=== PATIENT | male | born 1965 | race Caucasian/White ===

== ENCOUNTER → 2020-04-28 12:10 | Outpatient (CLI) | payer MEDICAID, SELFPAY ==
[2020-04-28 13:41] LABS: Alanine Aminotransferase 14 U/L (12-78); Aspartate Amino Transferase 17 U/L (17-59); Bilirubin,Unconjugated 0.6 mg/dL (0.0-1.1)
[2020-04-28 13:42] LABS: Albumin Level 3.7 g/dl (3.5-5.0); Alkaline Phosphatase 84 U/L (38-126); Bilirubin,Direct 0.1 mg/dl (0.0-0.4); Bilirubin,Indirect 0.6 mg/dL (0.0-0.9); Bilirubin,Total 0.7 mg/dl (0.2-1.3); Chol/HDL Ratio 4.3 (1-3.5); Cholesterol 115 mg/dl (140-200); HDL Cholesterol 27 mg/dl (40-60); Total Protein,Serum 6.1 g/dl (6.3-8.2); Triglycerides 194 mg/dl (30-150); VLDL Cholesterol 39 mg/dL (0-40)
[2020-04-28 13:53] LABS: Direct LDL Cholesterol 57.88 mg/dL (100-129)
== END ==
PROVIDERS: Visit Provider Nurse Practitioner Family
DX: I11.9 Hypertensive heart disease without heart failure (principal); I77.9 Disorder of arteries and arterioles, unspecified; F17.200 Nicotine dependence, unspecified, uncomplicated
CPT/HCPCS: 36415; 80061; 80076

== ENCOUNTER → 2021-06-21 09:21 | Outpatient (CLI) | payer MEDICAID, SELFPAY ==
[2021-06-21 10:55] LABS: Chloride 104 mmol/L (98-107)
[2021-06-21 10:56] LABS: Potassium 3.7 mmoL/L (3.5-5.1); Sodium 138 mmol/L (136-145)
[2021-06-21 10:58] LABS: Alanine Aminotransferase 17 U/L (12-78); Alkaline Phosphatase 78 U/L (38-126); Anion Gap 13.7 mEq/L (5-15); Aspartate Amino Transferase 25 U/L (17-59); Bilirubin,Indirect 0.8 mg/dL (0.0-0.9); Bilirubin,Total 0.8 mg/dl (0.2-1.3); Bilirubin,Unconjugated 0.9 mg/dL (0.0-1.1); Blood Urea Nitrogen 14 mg/dl (9-20); Carbon Dioxide 24 mmol/L (22.0-30.0); Estimated Glomerular Filt Rate 69 ml/min (>60); GFR (African American) 83 ML/MIN (>60)
[2021-06-21 10:59] LABS: Calcium 8.9 mg/dl (8.4-10.2); Chol/HDL Ratio 4.3 (1-3.5); Cholesterol 153 mg/dl (140-200); Glucose 108 mg/dl (74-100); HDL Cholesterol 36 mg/dl (40-60); Total Protein,Serum 6.6 g/dl (6.3-8.2); Triglycerides 108 mg/dl (30-150); VLDL Cholesterol 22 mg/dL (0-40)
[2021-06-21 11:10] LABS: Direct LDL Cholesterol 91.73 mg/dL (100-129)
== END ==
PROVIDERS: Visit Provider Physician Assistant
DX: I77.9 Disorder of arteries and arterioles, unspecified (principal); I11.9 Hypertensive heart disease without heart failure; F17.200 Nicotine dependence, unspecified, uncomplicated
CPT/HCPCS: 36415; 80048; 80061; 80076

== ENCOUNTER → 2022-09-18 13:38 | Outpatient (CLI) | payer MEDICAID, SELFPAY ==
[2022-09-18 14:15] LABS: Basophils # 0.1 K/mm3 (0-0.2); Basophils % 0.8 % (0.1-2.0); Eosinophils # 0.4 K/mm3 (0.0-0.4); Eosinophils % 3.6 % (0.1-12.0); Hematocrit 50.9 % (42.0-52.0); Hemoglobin 16.9 g/dL (14.1-18.0); Lymphocytes # 3.1 K/mm3 (0.7-4.5); Lymphocytes % 30.8 % (10-50); Mean Corpuscular HGB Conc 33.3 g/dL (31.8-35.4); Mean Corpuscular Hemoglobin 33.1 pg (27.0-31.2); Mean Corpuscular Volume 99.4 fl (80-94); Mean Platelet Volume 8.7 fl (7.4-10.4); Monocytes # 0.7 K/mm3 (0.1-1.0); Monocytes % 6.9 % (1.7-9.3); Neutrophils # 5.9 K/mm3 (1.8-7.8); Platelet Count 312 K/mm3 (142-424); Red Blood Count 5.12 M/mm3 (4.60-6.20); Red Cell Distribution Width 13.3 % (11.5-17.5); White Blood Count 10.2 K/mm3 (4.8-10.8)
[2022-09-18 15:29] LABS: Alanine Aminotransferase 73 U/L (12-78); Albumin Level 4.4 g/dl (3.5-5.0); Alkaline Phosphatase 125 U/L (38-126); Anion Gap 10.6 mEq/L (5-15); Aspartate Amino Transferase 38 U/L (17-59); Bilirubin,Direct 0.1 mg/dl (0.0-0.4); Bilirubin,Indirect 0.2 mg/dL (0.0-0.9); Bilirubin,Total 0.3 mg/dl (0.2-1.3); Bilirubin,Unconjugated 0.1 mg/dL (0.0-1.1); Blood Urea Nitrogen 14 mg/dl (9-20); Calcium 9.5 mg/dl (8.4-10.2); Carbon Dioxide 30 mmol/L (22.0-30.0); Chloride 98 mmol/L (98-107); Chol/HDL Ratio 5.1 (1-3.5); Cholesterol 167 mg/dl (140-200); Estimated Glomerular Filt Rate 62 ml/min (>60); GFR (African American) 75 ML/MIN (>60); Glucose 110 mg/dl (74-100); HDL Cholesterol 33 mg/dl (40-60); Magnesium 1.8 mg/dl (1.6-2.3); Potassium 4.6 mmoL/L (3.5-5.1); Sodium 134 mmol/L (136-145); Total Protein,Serum 7.1 g/dl (6.3-8.2); Triglycerides 348 mg/dl (30-150); VLDL Cholesterol 70 mg/dL (0-40)
[2022-09-18 15:40] LABS: Direct LDL Cholesterol 88.32 mg/dL (100-129)
[2022-09-18 15:45] LABS: Free T4 (Free Thyroxine) 1.34 ng/dl (0.78-2.19)
[2022-09-18 15:59] LABS: Thyroid Stimulating Hormone 1.63 uIU/mL (0.465-4.68)
[2022-09-19 09:51] LABS: Hemoglobin A1C 5.4 % (4.0-6.0)
== END ==
PROVIDERS: PCP Physician Assistant; Visit Provider Physician Assistant
DX: R00.1 Bradycardia, unspecified (principal); I11.9 Hypertensive heart disease without heart failure; I77.9 Disorder of arteries and arterioles, unspecified; E78.1 Pure hyperglyceridemia; F17.200 Nicotine dependence, unspecified, uncomplicated
CPT/HCPCS: 36415; 80048; 80061; 80076; 83036; 83735; 84439; 84443; 85025

== ENCOUNTER → 2023-09-11 15:16 | Outpatient (CLI) | payer MEDICAID, SELFPAY ==
[2023-09-11 16:13] LABS: Basophils # 0.1 K/mm3 (0-0.2); Basophils % 0.5 % (0.1-2.0); Eosinophils # 0.3 K/mm3 (0.0-0.4); Eosinophils % 2.5 % (0.1-12.0); Hematocrit 48.1 % (42.0-52.0); Hemoglobin 16.9 g/dL (14.1-18.0); Lymphocytes # 2.8 K/mm3 (0.7-4.5); Lymphocytes % 26.7 % (10-50); Mean Corpuscular HGB Conc 35.2 g/dL (31.8-35.4); Mean Corpuscular Hemoglobin 33.7 pg (27.0-31.2); Mean Corpuscular Volume 95.9 fl (80-94); Mean Platelet Volume 8.1 fl (7.4-10.4); Monocytes # 0.7 K/mm3 (0.1-1.0); Monocytes % 6.7 % (1.7-9.3); Neutrophils # 6.7 K/mm3 (1.8-7.8); Neutrophils % 63.5 % (37.0-80.0); Platelet Count 279 K/mm3 (142-424); Red Blood Count 5.01 M/mm3 (4.60-6.20); Red Cell Distribution Width 14.1 % (11.5-17.5); White Blood Count 10.5 K/mm3 (4.8-10.8)
[2023-09-11 16:45] LABS: Alanine Aminotransferase 64 U/L (12-78); Albumin Level 4.3 g/dl (3.5-5.0); Alkaline Phosphatase 106 U/L (38-126); Aspartate Amino Transferase 38 U/L (17-59); Bilirubin,Direct 0.2 mg/dl (0.0-0.4); Bilirubin,Indirect 0.1 mg/dL (0.0-0.9); Bilirubin,Total 0.3 mg/dl (0.2-1.3); Bilirubin,Unconjugated 0.1 mg/dL (0.0-1.1); Blood Urea Nitrogen 14 mg/dl (9-20); Calcium 8.9 mg/dl (8.4-10.2); Carbon Dioxide 25 mmol/L (22.0-30.0); Chloride 102 mmol/L (98-107); Cholesterol 178 mg/dl (140-200); Estimated Glomerular Filt Rate 76 ml/min (>60); GFR (African American) 92 ML/MIN (>60); Glucose 103 mg/dl (74-100); Magnesium 1.7 mg/dl (1.6-2.3); Total Protein,Serum 7.3 g/dl (6.3-8.2)
[2023-09-11 16:47] LABS: Chol/HDL Ratio 6.8 (1-3.5); HDL Cholesterol 26 mg/dl (40-60); Sodium 134 mmol/L (136-145)
[2023-09-11 16:52] LABS: Triglycerides 431 mg/dl (30-150)
[2023-09-11 16:56] LABS: Direct LDL Cholesterol 98.88 mg/dL (100-129)
[2023-09-11 17:02] LABS: Free T4 (Free Thyroxine) 1.55 ng/dl (0.78-2.19)
[2023-09-11 17:16] LABS: Thyroid Stimulating Hormone 1.61 uIU/mL (0.465-4.68)
== END ==
PROVIDERS: PCP Orthopaedic Surgery; Visit Provider Physician Assistant
DX: E78.1 Pure hyperglyceridemia (principal); I11.9 Hypertensive heart disease without heart failure; I77.9 Disorder of arteries and arterioles, unspecified; Z79.899 Other long term (current) drug therapy
CPT/HCPCS: 36415; 80048; 80061; 80076; 83735; 84439; 84443; 85025

== ENCOUNTER 2024-02-26 12:26 | Observation (INO) | payer MEDICAID, SELFPAY ==
[2024-02-26] VITALS (66 sets, daily range): BP systolic 86–200; BP diastolic 42–101; PULSE 50–89; RESP 17–18; TEMP 36.6–36.7; O2SAT 18–99; BMI 26.9; BMI 25.9
--- NOTE | 2024-02-26 07:17 | IR_ITS ---
APPROVED REPORT Patient Location: Outpatient PROCEDURES Right femoral arterial access Right retrograde femoral angiogram Catheter placed in the abdominal aorta Abdominal aortography Repositioning of the catheter in the abdominal aorta Bilateral iliofemoral angiogram Left femoral arterial access Left retrograde femoral angiogram Bare-metal stent deployment to the distal abdominal aorta Bare-metal stent deployment to the right common iliac artery Bare-metal stent deployment to the right external iliac artery Bare-metal stent deployment to the left common iliac artery Bare-metal stent deployment to the left external iliac artery INDICATION Occluded abdominal aorta, Occluded bilateral iliac arteries both common and external, Valdez claudication class III, Peripheral artery disease Informed consent was obtained prior to the procedure. COMPLICATIONS NONE Estimated Blood Loss: LESS THAN 10 ML TECHNIQUE 1% lidocaine used to size right groin the right femoral artery was accessed via the center technique and a 5 Panamanian sheath placed in the right femoral artery. Immediately there was resistance with the wire passing through the external iliac artery. Retrograde angiography demonstrated the iliac artery and common iliac arteries were occluded. An advantage wire was used to push through the occlusion in a retrograde manner and reenter the the abdominal aorta. A pigtail catheter was advanced and bilateral iliofemoral angiography was performed. An abdominal aortogram was also performed. Following this 1% lidocaine was used on the size the left groin and the left femoral artery was accessed via the Salinger technique. An advantage wire was advanced into the external iliac artery where the vessel was occluded. A long 6 Panamanian sheath was then advanced into the left femoral artery. Retrograde angiography did confirm that the iliac artery was occluded. Therapeutic heparin was now administered giving a therapeutic ACT. The advantage wire was pushed in a retrograde manner however could not easily cannulized the distal abdominal aorta. Because of this a rim catheter was advanced into the right groin and then placed into the distal abdominal aorta. An advantage wire was then used to push through the occluded left common iliac artery and out into the external iliac artery and then reenter the true lumen in the distal left external iliac artery. The wire was then advanced and fed into the left femoral sheath. The left femoral sheath was slowly removed while the wire was advanced. Eventually the sheath was entirely removed and the advantage wire which was inserted in the right femoral artery then exited the left artery out of the site. The wire was pulled through and a longer sheath was advanced back into the left common femoral artery. A 7 mm x 100 mm balloon was used to dilate the right common iliac artery the distal abdominal aorta and the left common and left external iliac artery. An 014 wire was already secured in the right groin and in the true lumen going into the aorta. At this point the wire was removed from the balloon and then fed in a retrograde manner through the balloon and this time the wire entered the abdominal aorta true lumen. The 014 wire was then exchanged over a trailblazer and an 035 wire was in the right groin into the true lumen in the aorta. 2 wires in the distal abdominal aorta 1 from each groin to 8 mm x 57 mm balloon expandable stents were placed in the distal abdominal aorta extending into the bilateral common iliac arteries. Both were deployed at 12 melinda. An additional 8 mm x 80 mm self-expanding stent was placed distal to the left common iliac artery stent extending into the external iliac artery and deployed. 2 additional 8 mm x 40 mm self-expanding stents were placed distal to the 80 mm self-expanding stent and deployed in an overlapping manner. This extended all the way out to the proximal left common femoral artery. A 7 mm x 40 mm balloon was then deployed up and down the common and external iliac arteries to post dilate. Excellent angiographic results were obtained. An additional 8 mm x 60 mm self-expanding stent was placed in the right common iliac artery extending down into the external iliac artery. An additional 8 mm x 60 mm self-expanding stent was placed distal to this extending down into the proximal right common femoral artery. Additional balloon angioplasty with a 7 mm balloon occurred. At the end of the procedure pigtail catheter is placed back to the distal abdominal aorta and abdominal aortography revealed widely patent distal abdominal aorta widely patent bilateral common and external iliac arteries with antegrade inline flow into the bilateral common femoral arteries. At this point the apparatus was removed the patient was transferred to the postop putting in stable condition for sheath removal ANGIOGRAPHIC RESULTS Distal abdominal aorta is occluded Bilateral common iliac arteries are occluded Bilateral external iliac arteries are occluded Bilateral internal iliac arteries are widely patent Bilateral common femoral arteries are patent At the end of the procedure the aortic bifurcation was reconstructed with wide patency of the distal abdominal aorta extending into the bilateral common iliac arteries and into the bilateral external iliac arteries with inline flow into the bilateral common femoral arteries. IMPRESSION Chronically occluded distal abdominal aorta and bilateral common and external iliac arteries Successful reconstruction of the abdominal aorta with recreation of the aortic bifurcation with stents from the aorta going into the bilateral common and external iliac arteries providing inline flow to the bilateral common femoral arteries PLAN 1. Dual antiplatelet therapy 2. Patient should be admitted overnight due to large 6 Panamanian sheath in the bilateral groins 3. Avoidance of tobacco products 4. LDL less than 55 to be achieved with high intensity statin 5. If not already performed patient does require cardiac ischemic evaluation Electronically signed by : Malick Neville MD 02/26/2024 13:31:43
[2024-02-26 08:39] LABS: Basophils # 0.1 K/mm3 (0-0.2); Basophils % 0.7 % (0.1-2.0); Eosinophils # 0.6 K/mm3 (0.0-0.4); Eosinophils % 3.3 % (0.1-12.0); Hematocrit 44.9 % (42.0-52.0); Hemoglobin 15.2 g/dL (14.1-18.0); Lymphocytes # 3.7 K/mm3 (0.7-4.5); Lymphocytes % 21.1 % (10-50); Mean Corpuscular HGB Conc 33.8 g/dL (31.8-35.4); Mean Corpuscular Hemoglobin 32.6 pg (27.0-31.2); Mean Corpuscular Volume 96.4 fl (80-94); Monocytes # 0.9 K/mm3 (0.1-1.0); Monocytes % 5.2 % (1.7-9.3); Neutrophils # 12.4 K/mm3 (1.8-7.8); Neutrophils % 69.7 % (37.0-80.0); Platelet Count 286 K/mm3 (142-424); Red Blood Count 4.66 M/mm3 (4.60-6.20); Red Cell Distribution Width 14.3 % (11.5-17.5); White Blood Count 17.7 K/mm3 (4.8-10.8)
[2024-02-26 08:41] LABS: MANUAL DIFFERENTIAL MANUAL DIFFERENTIAL (MANUAL DIFF)
[2024-02-26 08:49] LABS: Anion Gap 11.9 mEq/L (5-15); Blood Urea Nitrogen 17 mg/dl (9-20); Calcium 9.1 mg/dl (8.4-10.2); Carbon Dioxide 28 mmol/L (22.0-30.0); Chloride 103 mmol/L (98-107); Creatinine Clearance Estimated 75 mL/min (50-200); Estimated Glomerular Filt Rate 56 ml/min (>60); GFR (African American) 68 ML/MIN (>60); Glucose 102 mg/dl (74-100); Potassium 3.9 mmoL/L (3.5-5.1); Sodium 139 mmol/L (136-145)
[2024-02-26 09:16] LABS: Eosinophils % 1 % (0-3); Lymphocytes % 19 % (10-50); Monocytes % 7 % (2-9); Neutrophils % 73 % (42-76); Platelet Estimate Normal; RBC Morphology Normal; Total Cells Counted 100
[2024-02-26] MEDS: LIDOCAINE 1% 10ML MDV 20 ML IJ (10:26)
[2024-02-26] MEDS: HEPARIN 1,000 UNITS/500ML NS (CATH LAB) 3000 UNIT IV (10:26)
[2024-02-26] MEDS: 0.9 % SODIUM CHLORIDE 500 ML 25 ML IV (10:26)
[2024-02-26] MEDS: diphenhydrAMINE 50MG/ML VIAL 50 MG IV (10:27)
[2024-02-26] MEDS: HEPARIN 1,000 UNITS/ML 10ML VIAL (CATH LAB) 10000 UNIT IV (10:38)
[2024-02-26] MEDS: FENTANYL 100MCG/2ML VIAL 50 MCG IV (11:18)
[2024-02-26] MEDS: MIDAZOLAM HCL 1MG/1ML 5ML VIAL 1 MG IV (11:18)
[2024-02-26] MEDS: CLOPIDOGREL 300MG TABLET 300 MG PO (12:15)
[2024-02-26] MEDS: IOPAMIDOL-250 (51%) 100ML BOT 260 ML IV (12:57)
[2024-02-26] MEDS: PROTAMINE SULFATE 50MG/5ML VIAL (CATH LAB) 30 MG IV (13:08)
--- NOTE | 2024-02-26 13:32 | EXP.HP ---
History of Present Illness *Admission Date: 02/26/24 *Reason for visit:: Lower extremity claudication *History of present illness: Mr. Lozoya is a 58-year-old male with significant peripheral artery disease. Lower extremity angiogram performed today. Bare-metal stents placed from the abdominal aorta into bilateral common and external iliac arteries. Due to the extensive nature of stenting and his chronic kidney disease, cardiology consulted medicine for admission and monitoring overnight. Patient seen after arriving to the floor. Overall doing well with no complaint no abdominal pain. Strong pulses in feet. No active signs of bleeding. Stable on room air. [facility] Disclaimer: The information contained in this section may have been updated after the patient was seen, as this information can be updated by other users. Medical History HLD (hyperlipidemia) Social History Smoking Status: Current every day smoker alcohol intake: current alcohol intake frequency: holidays/special occasions only substance use type: denies use current occupational status: unemployed Travel in the last 8 weeks: Inside the [place] Review of Systems Review of Systems Review of systems (narrative): 14 point review of systems performed, pertinent positives and negatives as per HPI Meds Home Medications and Allergies Home Medications Medication Instructions Recorded Confirmed Type amlodipine 5 mg tablet 5 mg PO DAILY #90 tabs 09/11/23 02/26/24 Rx metoprolol succinate 50 mg 50 mg PO DAILY #90 tabs 09/11/23 02/26/24 Rx tablet,extended release 24 hr atorvastatin 40 mg tablet 40 mg PO DAILY #90 tabs 09/13/23 02/26/24 Rx aspirin 81 mg tablet,delayed 81 mg PO DAILY 02/13/24 02/26/24 History release (Adult Low Dose Aspirin) clopidogrel 75 mg tablet (Plavix) 75 mg PO DAILY 30 days #30 tabs 02/26/24 Rx losartan 100 1 tab PO DAILY 02/26/24 02/26/24 History mg-hydrochlorothiazide 12.5 mg tablet New Prescriptions to Start Prescriptions: clopidogrel [Plavix] Malick Neville Allergies Allergy/AdvReac Type Severity Reaction Status Date / Time No Known Allergies Allergy Verified 02/13/24 14:02 Exam Data for Last 24 hours Vital signs and Labs for Last 24 Hours: Temp Pulse Resp BP Pulse Ox O2 Del Method 97.9 F 59 L 18 152/72 H 98 Room Air 02/26/24 08:57 02/26/24 13:24 02/26/24 13:24 02/26/24 13:24 02/26/24 13:24 02/26/24 13:24 Laboratory Results - last 24 hr 02/26/24 08:30: WBC 17.7 H, RBC 4.66, Hgb 15.2, Hct 44.9, MCV 96.4 H, MCH 32.6 H, MCHC 33.8, RDW 14.3, Plt Count 286, MPV 9.0, Neut % (Auto) 69.7, Lymph % (Auto) 21.1, [place] % (Auto) 5.2, Eos % (Auto) 3.3, Baso % (Auto) 0.7, Neut # (Auto) 12.4 H, Lymph # (Auto) 3.7, [place] # (Auto) 0.9, Eos # (Auto) 0.6 H, Baso # (Auto) 0.1, Total Counted 100, Neutrophils % (Manual) 73, Lymphocytes % (Manual) 19, Monocytes % (Manual) 7, Eosinophils % (Manual) 1, Platelet Estimate Normal, RBC Morphology Normal, Sodium 139, Potassium 3.9, Chloride 103, Carbon Dioxide 28, Anion Gap 11.9, BUN 17, Creatinine 1.30 H, Estimated Creat Clear 75, Estimated GFR 56 L, Est GFR ( Amer) 68, Glucose 102 H, Calcium 9.1 I & O for Last 24 hours: Intake & Output 02/23/24 02/24/24 02/25/24 02/26/24 23:59 23:59 23:59 23:59 Weight 87.543 kg Constitutional Constitutional: no acute distress and chronically ill appearing *Routine HEENT Exam Head: Present normocephalic Eye: Present EOMI and PERRL ENT: Present mucous membranes moist *Routine Neck Exam Neck: Present supple; Absent lymphadenopathy *Routine Respiratory Exam Respiratory: Present CTA bilaterally *Routine Cardiovascular Exam Cardiovascular: Present RRR *Routine Abdominal Exam Abdominal: Present soft and normoactive bowel sounds; Absent tenderness *Routine Rectal Exam Rectal:: deferred *Routine Genitalia Exam Genitalia:: deferred *Routine Extremities Exam Extremities: Present pulses intact; Absent cyanosis, clubbing or edema *Routine Skin Exam Skin: Present warm; Absent rash *Routine Neurological Exam Neurological: Present alert, oriented X3 and moving all extremities; Absent altered mental status Assessment and Plan *Assessment and plan (1) Claudication of both lower extremities: Status: Acute Category: Medical Code(s): I73.9 - Peripheral vascular disease, unspecified (2) Peripheral arterial occlusive disease: Status: Chronic Category: Medical Code(s): I77.9 - Disorder of arteries and arterioles, unspecified (3) HLD (hyperlipidemia): Status: Acute Qualifiers: Hyperlipidemia type: mixed hyperlipidemia Qualified Code(s): E78.2 - Mixed hyperlipidemia Category: Medical Code(s): E78.5 - Hyperlipidemia, unspecified (4) Hypertriglyceridemia: Status: Acute Category: Medical Code(s): E78.1 - Pure hyperglyceridemia (5) Hypertensive heart disease: Status: Chronic Qualifiers: Heart failure presence: without heart failure Qualified Code(s): I11.9 - Hypertensive heart disease without heart failure Category: Medical Code(s): I11.9 - Hypertensive heart disease without heart failure (6) Essential hypertension: Status: Chronic Category: Medical Code(s): I10 - Essential (primary) hypertension (7) Tobacco dependence syndrome: Status: Chronic Category: Medical Code(s): F17.200 - Nicotine dependence, unspecified, uncomplicated Plan 58-year-old male with history of tobacco use disorder and peripheral artery disease. Presented as an outpatient for stenting of aorta and bilateral common and external iliac arteries. Tolerated procedure well. Discussed case with cardiology, request admission for monitoring overnight and gentle hydration given CKD. Medicine agreed admit for further management. Clinically stable on evaluation after arriving to the floor. Problems addressed as follows: PAD with claudication -Taken for stenting today. Bare-metal stents administered to aorta and into bilateral common and external iliac arteries -Initiate dual antiplatelet therapy with aspirin and Plavix -Cardiology assisting with care. Appreciate their recommendation CKD 3 - Creatinine 1.3, BUN 17. Gentle hydration with LR at 100 cc/h for 1 L. Repeat BMP ordered for the morning. Hypertension: Hyperlipidemia: - continue metoprolol, losartan with HCTZ and amlodipine -Echo, renal duplex pending. Further management pending results -Continue Lipitor nightly Tobacco abuse: Nicotine patch as needed Full code Heparinized during cath Cardiac diet
[2024-02-26 14:13] LABS: CATHL Activated Clotting Time 242 SEC (74-125)
[2024-02-26 14:14] LABS: CATHL Activated Clotting Time 282 SEC (74-125)
[2024-02-26 14:17] LABS: CATHL Activated Clotting Time 231 SEC (74-125)
[2024-02-26 14:18] LABS: CATHL Activated Clotting Time 156 SEC (74-125)
--- NOTE | 2024-02-26 14:21 | HMH.PHAINT1 ---
Pharmacy Intervention Comments: MEDICATION RECONCILIATION COMPLETE USING EXTERNAL PHARMACY FILL HISTORY AND MOST RECENT CARDIOLOGY OFFICE VISIT.
--- NOTE | 2024-02-26 14:40 | P.CONCA_ITS ---
History of Present Illness History of Present Illness Consult date: 02/26/24 Requesting physician: Jluis Cameron Consult reason: known to you Chief complaint: PAD, s/p stenting Additional Medical History:: 1. HTN 2. PAD A. Lower extremity angiogram, 02/26/2024, BMS from abdominal aorta into bilateral common and external iliac arteries 3. Tobacco use 4. Hypertriglyceridemia with level of 431 on 09/11/2023 History of present illness: 58-year-old white male admitted post lower extremity angiogram and stenting for IV fluids and monitoring of renal status overnight. Patient recently complained of significant claudication symptoms which prompted today's procedure. Due to extensive peripheral arterial disease outpatient cardiac ischemic evaluation recommended. [facility] Disclaimer: The information contained in this section may have been updated after the luisa lynn was seen, as this information can be updated by other users. Medical History HLD (hyperlipidemia) Social History Smoking Status: Current every day smoker alcohol intake: current alcohol intake frequency: holidays/special occasions only substance use type: denies use current occupational status: unemployed Travel in the last 8 weeks: [place] the [place] Review of Systems Review of Systems Review of systems:: pertinent systems reviewed and negative unless documented below Exam Data for Last 24 hours Vital signs and Labs for Last 24 Hours: Temp Pulse Resp BP Pulse Ox O2 Del Method 97.9 F 60 18 113/63 98 Room Air 02/26/24 08:57 02/26/24 13:36 02/26/24 13:36 02/26/24 13:36 02/26/24 13:36 02/26/24 13:36 Laboratory Results - last 24 hr 02/26/24 08:30: WBC 17.7 H, RBC 4.66, Hgb 15.2, Hct 44.9, MCV 96.4 H, MCH 32.6 H , MCHC 33.8, RDW 14.3, Plt Count 286, MPV 9.0, Neut % (Auto) 69.7, Lymph % (Auto) 21.1, [place] % (Auto) 5.2, Eos % (Auto) 3.3, Baso % (Auto) 0.7, Neut # (Auto) 12.4 H, Lymph # (Auto) 3.7, [place] # (Auto) 0.9, Eos # (Auto) 0.6 H, Baso # (Auto) 0.1, Total Counted 100, Neutrophils % (Manual) 73, Lymphocytes % (Manual) 19, Monocytes % (Manual) 7, Eosinophils % (Manual) 1, Platelet Estimate Normal, RBC Morphology Normal, Sodium 139, Potassium 3.9, Chloride 103, Carbon Dioxide 28, Anion Gap 11.9, BUN 17, Creatinine 1.30 H, Estimated Creat Clear 75, Estimated GFR 56 L, Est GFR ( Amer) 68, Glucose 102 H, Calcium 9.1 02/26/24 10:47: Activated Clotting Time 242 H* 02/26/24 11:27: Activated Clotting Time 282 H* 02/26/24 11:53: Activated Clotting Time 231 H* 02/26/24 13:04: Activated Clotting Time 156 H* D I & O for Last 24 hours: Intake & Output 02/24/24 02/25/24 02/26/24 02/27/24 11:59 11:59 11:59 11:59 Weight 193 lb Constitutional Constitutional: no acute distress *Routine Respiratory Exam Respiratory: Present CTA bilaterally *Routine Cardiovascular Exam Cardiovascular: Present RRR *Routine Extremities Exam Extremities: Absent cyanosis, clubbing or edema *Routine Neurological Exam Neurological: Present alert and oriented X3 Meds Home Medications and Allergies Home Medications Medication Instructions Recorded Confirmed Type amlodipine 5 mg tablet 5 mg PO DAILY #90 tabs 09/11/23 02/26/24 Rx metoprolol succinate 50 mg 50 mg PO DAILY #90 tabs 09/11/23 02/26/24 Rx tablet,extended release 24 hr atorvastatin 40 mg tablet 40 mg PO DAILY #90 tabs 09/13/23 02/26/24 Rx aspirin 81 mg tablet,delayed 81 mg PO DAILY 02/13/24 02/26/24 History release (Adult Low Dose Aspirin) clopidogrel 75 mg tablet (Plavix) 75 mg PO DAILY 30 days #30 tabs 02/26/24 Rx losartan 100 1 tab PO DAILY 02/26/24 02/26/24 History mg-hydrochlorothiazide 12.5 mg tablet New Prescriptions to Start Prescriptions: clopidogrel [Plavix] Malick Neville Allergies Allergy/AdvReac Type Severity Reaction Status Date / Time No Known Allergies Allergy Verified 02/13/24 14:02 Assessment and Plan *Assessment and plan (1) Claudication of both lower extremities: Status: Acute Category: Medical Code(s): I73.9 - Peripheral vascular disease, unspecified (2) HLD (hyperlipidemia): Status: Acute Qualifiers: Hyperlipidemia type: mixed hyperlipidemia Qualified Code(s): E78.2 - Mixed hyperlipidemia Category: Medical Code(s): E78.5 - Hyperlipidemia, unspecified (3) Hypertriglyceridemia: Status: Acute Category: Medical Code(s): E78.1 - Pure hyperglyceridemia (4) Peripheral arterial occlusive disease: Status: Chronic Category: Medical Code(s): I77.9 - Disorder of arteries and arterioles, unspecified (5) Essential hypertension: Status: Chronic Category: Medical Code(s): I10 - Essential (primary) hypertension (6) Tobacco dependence syndrome: Status: Chronic Category: Medical Code(s): F17.200 - Nicotine dependence, unspecified, uncomplicated Plan 1. PAD with claudication -BMS of aorta into bilateral common and external iliac arteries -DAPT with ASA and plavix 2. Hypertension -Continue metoprolol, losartan with HCTZ and amlodipine -Check echocardiogram -Check renal duplex and ultrasound 3. Tobacco abuse -Cessation recommended 4. Hyperlipidemia with hypertriglyceridemia -Continue atorvastatin therapy -check lipids today BMP in AM Likely home in AM
--- NOTE | 2024-02-26 14:43 | PC.NURSE ---
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
--- NOTE | 2024-02-26 14:45 | CA_ITS ---
APPROVED REPORT EXAM: Comprehensive 2D, Doppler, and color-flow Echocardiogram Haulage Boss: ALEXX Coto, RVS Ht: 5 ft 11 in Wt: 193lbs BSA: 2.08 BP: 122/78 mmHg Indications: CAD, PVD, BRADYCARDIA, LIMITED WINDOWS POST CATH 2D Dimensions IVSd 0.99 cm LVEF (Visual) 61.20 % PWd 0.95 cm LA Volume 49.10 mL LVDd 5.65 cm LA Volume Index 23.10 mL/m2 (M/F) 16-34 LVDs 3.77 cm Left Atrium 3.21 cm M-Mode Dimensions LA Diam 3.51 cm (1.9-4.0) EPSs 0.93 cm TAPSE 2.35 (<1.7) LV Diastology E Decel Time 163 (160-240 msec) E/A Ratio 0.89 MED A' 14.50 cm/s LAT A' 9.10 cm/s Aortic Valve KATE Index 1.23 cm2/m2 AoV Peak Marvel. 132.0 (50-130 cm/s) AO Peak GR. 7.00 mmHg AO Mean GR. 3.50 (<5 mmHg) AO VTI 30.5 (18-25 cm) KATE (VTI) 2.62 (2.5-4.5 cm2) Mitral Valve MV A Velocity 85.0 (40-130 cm/s) E/A Ratio 0.89 Pulmonary Valve PV Peak Velocity 91.0 (50-150 cm/s) Left Ventricle The left ventricle is normal size. The left ventricular systolic function is normal. The left ventricular ejection fraction is within the normal range. There is normal left ventricular wall thickness. There is normal LV segmental wall motion. The left ventricular diastolic function is normal. LVEF is 60%. Right Ventricle The right ventricle is normal size. The right ventricular systolic function is normal. Atria The left atrium size is normal. The right atrium size is normal. There is no Doppler evidence of interatrial shunt. Aortic Valve The aortic valve is mildly thickened. There is no aortic valvular stenosis. No aortic regurgitation is present. Mitral Valve The mitral valve is normal in structure. No evidence of mitral valve stenosis. There is no mitral valve regurgitation noted. Tricuspid Valve The tricuspid valve leaflets are thin and pliable. Trace tricuspid regurgitation. There is insufficient TR jet to estimate RVSP. Pulmonic Valve The pulmonary valve is normal in structure. Trace pulmonic regurgitation. Great Vessels The aortic root is normal in size. The ascending aorta is not well visualized. The IVC is not well visualized. Pericardium There is no pericardial effusion. Other Information Study Quality: Technically Difficult. Technically limited study due to inability to position patient. Conclusion Technically difficult study due to poor accoustic windows in the setting of inability to position patient (bed rest after groin access for cardiac cath). Normal biventricular systolic function. No significant valvular stenosis or regurgitation. Electronically signed by : Radha Gusman MD 02/27/2024 00:22:58
[2024-02-26 15:24] LABS: Alanine Aminotransferase 17 U/L (12-78); Albumin Level 3.7 g/dl (3.5-5.0); Alkaline Phosphatase 97 U/L (38-126); Aspartate Amino Transferase 35 U/L (17-59); Bilirubin,Direct 0.3 mg/dl (0.0-0.4); Bilirubin,Indirect 0.4 mg/dL (0.0-0.9); Bilirubin,Total 0.7 mg/dl (0.2-1.3); Bilirubin,Unconjugated 0.4 mg/dL (0.0-1.1); Cholesterol 165 mg/dl (140-200); Total Protein,Serum 6.5 g/dl (6.3-8.2); Triglycerides 64 mg/dl (30-150); VLDL Cholesterol 13 mg/dL (0-40)
[2024-02-26 15:25] LABS: Chol/HDL Ratio 2.8 (1-3.5); HDL Cholesterol 59 mg/dl (40-60)
[2024-02-26 15:36] LABS: Direct LDL Cholesterol 101.13 mg/dL (100-129)
--- NOTE | 2024-02-26 18:58 | PC.NURSE ---
CATH SITES TO [facility]. VSS, +2 PEDAL PUSLES. PATIENT NEEDS TO LAY FLAT, CAN SIT UP AT 2000 AND STAND AT 2100. ALERT AND ORIENTATED. CB WITHIN REACH.
[2024-02-26] MEDS: LACTATED RINGERS 1000ML 1,000 ML 100 ML IV (19:48)
[2024-02-27] VITALS: BP 147/76; PULSE 70; PULSE 77; RESP 16; TEMP 36.8; O2SAT 96
--- NOTE | 2024-02-27 | US_ITS ---
FINAL REPORT CLINICAL HISTORY: hypertension FINDINGS: The right kidney measures 10.6 cm in length. It is normal in echogenicity. There is no hydronephrosis. The left kidney measures 10.6 cm in length. It is normal in echogenicity. There is no hydronephrosis. The spleen is unremarkable. IMPRESSION: Normal renal ultrasound. Reviewed, Interpreted and Dictated by Kristopher Gates MD Transcribed by Monique Cuello Authenticated and [facility]
[2024-02-27 04:00] VITALS: BP 151/85; PULSE 79; PULSE 80; RESP 17; TEMP 36.9; O2SAT 96; BMI 26.1
--- NOTE | 2024-02-27 04:13 | PC.NURSE ---
Patient is A&Ox4. Patient lungs sounds are clear bilaterally throughout. Patient has not wanted to get up out of bed thus far this shift. Patient denies any pain thus far this RN's shift. Patient bowel sounds are active. Bilateral groin cath sites are C/D/I with gauze and tegaderm. Bilateral pedal pulses are +2, easy to palpate and equal.
[2024-02-27 07:44] LABS: Basophils # 0.1 K/mm3 (0-0.2); Basophils % 0.5 % (0.1-2.0); Eosinophils # 0.2 K/mm3 (0.0-0.4); Eosinophils % 1.7 % (0.1-12.0); Lymphocytes # 2.9 K/mm3 (0.7-4.5); Lymphocytes % 21.8 % (10-50); Mean Corpuscular HGB Conc 33.8 g/dL (31.8-35.4); Mean Corpuscular Hemoglobin 32.7 pg (27.0-31.2); Mean Corpuscular Volume 96.8 fl (80-94); Mean Platelet Volume 8.6 fl (7.4-10.4); Monocytes # 0.8 K/mm3 (0.1-1.0); Monocytes % 6.2 % (1.7-9.3); Neutrophils # 9.4 K/mm3 (1.8-7.8); Neutrophils % 69.8 % (37.0-80.0); Platelet Count 207 K/mm3 (142-424); Red Blood Count 4.03 M/mm3 (4.60-6.20); Red Cell Distribution Width 14.2 % (11.5-17.5); White Blood Count 13.4 K/mm3 (4.8-10.8)
[2024-02-27 07:47] LABS: Anion Gap 10.9 mEq/L (5-15); Blood Urea Nitrogen 14 mg/dl (9-20); Calcium 8.4 mg/dl (8.4-10.2); Carbon Dioxide 27 mmol/L (22.0-30.0); Chloride 101 mmol/L (98-107); Creatinine Clearance Estimated 78 mL/min (50-200); Estimated Glomerular Filt Rate 62 ml/min (>60); GFR (African American) 75 ML/MIN (>60); Glucose 96 mg/dl (74-100); Potassium 3.9 mmoL/L (3.5-5.1); Sodium 135 mmol/L (136-145)
--- NOTE | 2024-02-27 07:47 | PC.NURSE ---
Ameya Garcia at bedside
--- NOTE | 2024-02-27 07:55 | EXP.DC.SUM ---
General Admission date:: 02/26/24 Discharge date: 02/27/24 HPI HPI HPI: Mr. Lozoya is a 58-year-old male with significant peripheral artery disease. Lower extremity angiogram performed today. Bare-metal stents placed from the abdominal aorta into bilateral common and external iliac arteries. Due to the extensive nature of stenting and his chronic kidney disease, cardiology consulted medicine for admission and monitoring overnight. Patient seen after arriving to the floor. Overall doing well with no complaint no abdominal pain. Strong pulses in feet. No active signs of bleeding. Stable on room air. Hospital Course Hospital Course Hospital Course: 58-year-old male with history of tobacco use disorder and peripheral artery disease. Presented as an outpatient for stenting of aorta and bilateral common and external iliac arteries. Tolerated procedure well. Discussed case with cardiology, request admission for monitoring overnight and gentle hydration given CKD. Medicine agreed admit for further management. Remained clinically stable after admission. Plan to discharge home. Close follow-up with cardiology for further evaluation in the outpatient setting of ischemic workup. Problems addressed as follows: PAD with claudication -Patient taken for stenting on 02/25. Tolerated procedure well. Bare-metal stents administered to aorta and into bilateral common and external iliac arteries. Initiated on dual antiplatelet therapy with aspirin and Plavix. Will continue this for 1 month. Cardiology assisted with management during admission. Will have close follow-up with their office for further evaluation and consideration of ischemic workup as an outpatient. -Initiate dual antiplatelet therapy with aspirin and Plavix -Cardiology assisting with care. Appreciate their recommendation CKD 3 - Creatinine 1.3, BUN 17. Gentle hydration with LR at 100 cc/h for 1 L. Repeat BMP ordered for the morning. Hypertension: Hyperlipidemia: - continue metoprolol, losartan with HCTZ and amlodipine. Echo with normal ejection fraction and no significant valvular disease. Renal duplex read still pending at time of discharge. Blood pressure well-controlled. Continue Lipitor nightly, LDL 101 during admission Tobacco abuse: Nicotine patch as needed Exam Data for Last 24 hours Vital signs and Labs for Last 24 Hours: Temp Pulse Resp BP Pulse Ox O2 Del Method 98.4 F 80 17 151/85 H 96 Room Air 02/27/24 04:00 02/27/24 04:00 02/27/24 04:00 02/27/24 04:00 02/27/24 04:00 02/27/24 07:26 Laboratory Results - last 24 hr 02/26/24 08:30: WBC 17.7 H, RBC 4.66, Hgb 15.2, Hct 44.9, MCV 96.4 H, MCH 32.6 H, MCHC 33.8, RDW 14.3, Plt Count 286, MPV 9.0, Neut % (Auto) 69.7, Lymph % (Auto) 21.1, [place] % (Auto) 5.2, Eos % (Auto) 3.3, Baso % (Auto) 0.7, Neut # (Auto) 12.4 H, Lymph # (Auto) 3.7, [place] # (Auto) 0.9, Eos # (Auto) 0.6 H, Baso # (Auto) 0.1, Total Counted 100, Neutrophils % (Manual) 73, Lymphocytes % (Manual) 19, Monocytes % (Manual) 7, Eosinophils % (Manual) 1, Platelet Estimate Normal, RBC Morphology Normal, Sodium 139, Potassium 3.9, Chloride 103, Carbon Dioxide 28, Anion Gap 11.9, BUN 17, Creatinine 1.30 H, Estimated Creat Clear 75, Estimated GFR 56 L, Est GFR ( Amer) 68, Glucose 102 H, Calcium 9.1 02/26/24 10:47: Activated Clotting Time 242 H* 02/26/24 11:27: Activated Clotting Time 282 H* 02/26/24 11:53: Activated Clotting Time 231 H* 02/26/24 13:04: Activated Clotting Time 156 H* D 02/26/24 : Total Bilirubin 0.7, Direct Bilirubin 0.3, Conjugated Bilirubin 0.0, Indirect Bilirubin 0.4, Unconjugated Bilirubin 0.4, AST 35, ALT 17, Alkaline Phosphatase 97, Total Protein 6.5, Albumin 3.7, Triglycerides 64, Cholesterol 165, LDL Cholesterol Direct 101.13, VLDL Cholesterol 13, HDL Cholesterol 59, Cholesterol/HDL Ratio 2.8 02/27/24 06:38: Sodium 135 L, Potassium 3.9, Chloride 101, Carbon Dioxide 27, Anion Gap 10.9, BUN 14, Creatinine 1.20, Estimated Creat Clear 78, Estimated GFR 62, Est GFR ( Amer) 75, Glucose 96, Calcium 8.4 I & O for Last 24 hours: Intake & Output 02/24/24 02/25/24 02/26/24 02/27/24 23:59 23:59 23:59 23:59 Intake Total 1200 / 1200 1000 / 1000 Output Total 500 / 650 400 / 400 Balance 700 / 550 600 / 600 Weight 84.567 kg 84.7 kg Constitutional Constitutional: no acute distress, average body habitus and cooperative *Routine HEENT Exam Head: Present normocephalic Eye: Present EOMI and PERRL ENT: Present mucous membranes moist *Routine Neck Exam Neck: Present supple; Absent lymphadenopathy *Routine Respiratory Exam Respiratory: Present CTA bilaterally; Absent rhonchi, wheezes or crackles *Routine Cardiovascular Exam Cardiovascular: Present RRR *Routine Abdominal Exam Abdominal: Present soft and normoactive bowel sounds; Absent tenderness *Routine Rectal Exam Patient deferred: visual exam *Routine Exam Patient deferred: penile exam *Routine Extremities Exam Extremities: Absent cyanosis, clubbing or edema *Routine Skin Exam Skin: Present warm; Absent rash *Routine Neurological Exam Neurological: Present alert, oriented X3 and moving all extremities; Absent altered mental status Results Data Completed and Pending Labs on day of discharge: Labs from last 24 hours 02/27/24 02/26/24 02/26/24 06:38 Unknown 13:04 WBC RBC Hgb Hct MCV MCH MCHC RDW Plt Count MPV Neut % (Auto) Lymph % (Auto) [place] % (Auto) Eos % (Auto) Baso % (Auto) Neut # (Auto) Lymph # (Auto) [place] # (Auto) Eos # (Auto) Baso # (Auto) Total Counted Neutrophils % (Manual) Lymphocytes % (Manual) Monocytes % (Manual) Eosinophils % (Manual) Platelet Estimate RBC Morphology Activated Clotting Time 156 H* D Sodium 135 L Potassium 3.9 Chloride 101 Carbon Dioxide 27 Anion Gap 10.9 BUN 14 Creatinine 1.20 Estimated Creat Clear 78 Estimated GFR 62 Est GFR ( Amer) 75 Glucose 96 Calcium 8.4 Total Bilirubin 0.7 Direct Bilirubin 0.3 Conjugated Bilirubin 0.0 Indirect Bilirubin 0.4 Unconjugated Bilirubin 0.4 AST 35 ALT 17 Alkaline Phosphatase 97 Total Protein 6.5 Albumin 3.7 Triglycerides 64 Cholesterol 165 LDL Cholesterol Direct 101.13 VLDL Cholesterol 13 HDL Cholesterol 59 Cholesterol/HDL Ratio 2.8 02/26/24 02/26/24 02/26/24 11:53 11:27 10:47 WBC RBC Hgb Hct MCV MCH MCHC RDW Plt Count MPV Neut % (Auto) Lymph % (Auto) [place] % (Auto) Eos % (Auto) Baso % (Auto) Neut # (Auto) Lymph # (Auto) [place] # (Auto) Eos # (Auto) Baso # (Auto) Total Counted Neutrophils % (Manual) Lymphocytes % (Manual) Monocytes % (Manual) Eosinophils % (Manual) Platelet Estimate RBC Morphology Activated Clotting Time 231 H* 282 H* 242 H* Sodium Potassium Chloride Carbon Dioxide Anion Gap BUN Creatinine Estimated Creat Clear Estimated GFR Est GFR ( Amer) Glucose Calcium Total Bilirubin Direct Bilirubin Conjugated Bilirubin Indirect Bilirubin Unconjugated Bilirubin AST ALT Alkaline Phosphatase Total Protein Albumin Triglycerides Cholesterol LDL Cholesterol Direct VLDL Cholesterol HDL Cholesterol Cholesterol/HDL Ratio 02/26/24 08:30 WBC 17.7 H RBC 4.66 Hgb 15.2 Hct 44.9 MCV 96.4 H MCH 32.6 H MCHC 33.8 RDW 14.3 Plt Count 286 MPV 9.0 Neut % (Auto) 69.7 Lymph % (Auto) 21.1 [place] % (Auto) 5.2 Eos % (Auto) 3.3 Baso % (Auto) 0.7 Neut # (Auto) 12.4 H Lymph # (Auto) 3.7 [place] # (Auto) 0.9 Eos # (Auto) 0.6 H Baso # (Auto) 0.1 Total Counted 100 Neutrophils % (Manual) 73 Lymphocytes % (Manual) 19 Monocytes % (Manual) 7 Eosinophils % (Manual) 1 Platelet Estimate Normal RBC Morphology Normal Activated Clotting Time Sodium 139 Potassium 3.9 Chloride 103 Carbon Dioxide 28 Anion Gap 11.9 BUN 17 Creatinine 1.30 H Estimated Creat Clear 75 Estimated GFR 56 L Est GFR ( Amer) 68 Glucose 102 H Calcium 9.1 Total Bilirubin Direct Bilirubin Conjugated Bilirubin Indirect Bilirubin Unconjugated Bilirubin AST ALT Alkaline Phosphatase Total Protein Albumin Triglycerides Cholesterol LDL Cholesterol Direct VLDL Cholesterol HDL Cholesterol Cholesterol/HDL Ratio DS: Diagnosis Discharge Diagnosis (1) Claudication of both lower extremities: Status: Acute Code(s): I73.9 - Peripheral vascular disease, unspecified (2) Peripheral arterial occlusive disease: Status: Chronic Code(s): I77.9 - Disorder of arteries and arterioles, unspecified (3) HLD (hyperlipidemia): Status: Acute Code(s): E78.5 - Hyperlipidemia, unspecified Qualifiers: Hyperlipidemia type: mixed hyperlipidemia Qualified Code(s): E78.2 - Mixed hyperlipidemia (4) Hypertriglyceridemia: Status: Acute Code(s): E78.1 - Pure hyperglyceridemia (5) Hypertensive heart disease: Status: Chronic Code(s): I11.9 - Hypertensive heart disease without heart failure Qualifiers: Heart failure presence: without heart failure Qualified Code(s): I11.9 - Hypertensive heart disease without heart failure (6) Essential hypertension: Status: Chronic Code(s): I10 - Essential (primary) hypertension (7) Tobacco dependence syndrome: Status: Chronic Code(s): F17.200 - Nicotine dependence, unspecified, uncomplicated Meds Home Medications and Allergies Home Medications Medication Instructions Recorded Confirmed Type amlodipine 5 mg tablet 5 mg PO DAILY #90 tabs 09/11/23 02/26/24 Rx metoprolol succinate 50 mg 50 mg PO DAILY #90 tabs 09/11/23 02/26/24 Rx tablet,extended release 24 hr atorvastatin 40 mg tablet 40 mg PO DAILY #90 tabs 09/13/23 02/26/24 Rx aspirin 81 mg tablet,delayed 81 mg PO DAILY 02/13/24 02/26/24 History release (Adult Low Dose Aspirin) clopidogrel 75 mg tablet (Plavix) 75 mg PO DAILY 30 days #30 tabs 02/26/24 Rx losartan 100 1 tab PO DAILY 02/26/24 02/26/24 History mg-hydrochlorothiazide 12.5 mg tablet New Prescriptions to Start Prescriptions: clopidogrel [Plavix] Malick Neville Allergies Allergy/AdvReac Type Severity Reaction Status Date / Time No Known Allergies Allergy Verified 02/13/24 14:02 Discharge Plan Disposition Patient Disposition: Home, Self-Care Condition: Fair Follow up Plan Follow up with: Kinjal Gillespie APRN [Referring] - 03/05/24 3:00 pm () Malick Neville MD [Staff Physician] - 03/10/24 9:30 am Prescriptions/Medication Reconciliation: New clopidogrel [Plavix] 75 mg Tablet 75 mg PO DAILY 30 Days Qty: 30 6RF Continued aspirin [Adult Low Dose Aspirin] 81 mg tablet,delayed release (DR/EC) 81 mg PO DAILY amlodipine 5 mg tablet 5 mg PO DAILY Qty: 90 3RF metoprolol succinate 50 mg tablet extended release 24 hr 50 mg PO DAILY Qty: 90 3RF atorvastatin 40 mg tablet 40 mg PO DAILY Qty: 90 3RF losartan-hydrochlorothiazide 100-12.5 mg tablet 1 tab PO DAILY Problem Reconciliation Problems Reviewed?: Yes Patient Discharge Instructions ACTIVITY: Continue current activity DIET: continue same diet Patient Instructions: Peripheral Artery Disease, Surgical Site Infection, DI for Moderate Sedation, DI for Post-Surgical Bleeding Providers Primary Care Provider: Provider,Referral Admit Provider: Jluis Cameron Attending Provider: Jluis Cameron
[2024-02-27 08:00] VITALS: BP 132/68; PULSE 60; PULSE 68; RESP 18; TEMP 36.4; O2SAT 96
[2024-02-27] MEDS: hydroCHLOROthiazide 12.5MG CAPSULE 12.5 MG PO (08:18)
[2024-02-27] MEDS: AMLODIPINE 5MG TABLET 5 MG PO (08:18)
[2024-02-27] MEDS: IRBESARTAN 150MG TAB 150 MG PO (08:18)
[2024-02-27] MEDS: ATORVASTATIN 40MG TABLET 40 MG PO (08:18)
[2024-02-27] MEDS: CLOPIDOGREL 75MG TAB 75 MG PO (08:18)
[2024-02-27] MEDS: ASPIRIN 81MG CHEWABLE TABLET 81 MG PO (08:18)
[2024-02-27] MEDS: METOPROLOL SUCCINATE XL 50MG TABLET 50 MG PO (08:19)
--- NOTE | 2024-02-27 08:23 | EXP.CARD.PN ---
Subjective Subjective Date: 02/27/24 Time: 08:24 Principal diagnosis: PAD s/p stenting Interval history: 58-year-old white male in bed in no acute distress. No complaints overnight. Bilateral femoral insertion sites examined with no evidence of bleed or pseudoaneurysm. Good peripheral pulses in the feet. Exam Data for Last 24 hours Vital signs and Labs for Last 24 Hours: Temp Pulse Resp BP Pulse Ox O2 Del Method 98.4 F 80 17 151/85 H 96 Room Air 02/27/24 04:00 02/27/24 04:00 02/27/24 04:00 02/27/24 04:00 02/27/24 04:00 02/27/24 07:26 Laboratory Results - last 24 hr 02/26/24 08:30: WBC 17.7 H, RBC 4.66, Hgb 15.2, Hct 44.9, MCV 96.4 H, MCH 32.6 H, MCHC 33.8, RDW 14.3, Plt Count 286, MPV 9.0, Neut % (Auto) 69.7, Lymph % (Auto) 21.1, [place] % (Auto) 5.2, Eos % (Auto) 3.3, Baso % (Auto) 0.7, Neut # (Auto) 12.4 H, Lymph # (Auto) 3.7, [place] # (Auto) 0.9, Eos # (Auto) 0.6 H, Baso # (Auto) 0.1, Total Counted 100, Neutrophils % (Manual) 73, Lymphocytes % (Manual) 19, Monocytes % (Manual) 7, Eosinophils % (Manual) 1, Platelet Estimate Normal, RBC Morphology Normal, Sodium 139, Potassium 3.9, Chloride 103, Carbon Dioxide 28, Anion Gap 11.9, BUN 17, Creatinine 1.30 H, Estimated Creat Clear 75, Estimated GFR 56 L, Est GFR ( Amer) 68, Glucose 102 H, Calcium 9.1 02/26/24 10:47: Activated Clotting Time 242 H* 02/26/24 11:27: Activated Clotting Time 282 H* 02/26/24 11:53: Activated Clotting Time 231 H* 02/26/24 13:04: Activated Clotting Time 156 H* D 02/26/24 : Total Bilirubin 0.7, Direct Bilirubin 0.3, Conjugated Bilirubin 0.0, Indirect Bilirubin 0.4, Unconjugated Bilirubin 0.4, AST 35, ALT 17, Alkaline Phosphatase 97, Total Protein 6.5, Albumin 3.7, Triglycerides 64, Cholesterol 165, LDL Cholesterol Direct 101.13, VLDL Cholesterol 13, HDL Cholesterol 59, Cholesterol/HDL Ratio 2.8 02/27/24 06:38: Sodium 135 L, Potassium 3.9, Chloride 101, Carbon Dioxide 27, Anion Gap 10.9, BUN 14, Creatinine 1.20, Estimated Creat Clear 78, Estimated GFR 62, Est GFR ( Amer) 75, Glucose 96, Calcium 8.4 I & O for Last 24 hours: Intake & Output 02/24/24 02/25/24 02/26/24 02/27/24 11:59 11:59 11:59 11:59 Intake Total 2200 / 2200 Output Total 900 / 900 Balance 1300 / 1300 Weight 193 lb 186 lb 11.704 oz Constitutional Constitutional: no acute distress *Routine Respiratory Exam Respiratory: Present CTA bilaterally *Routine Cardiovascular Exam Cardiovascular: Present RRR *Routine Extremities Exam Extremities: Absent cyanosis, clubbing or edema *Routine Neurological Exam Neurological: Present alert, oriented X3 and CN II-XII intact Progress Note: A&P Assessment and plan (1) Claudication of both lower extremities: Status: Acute (2) Peripheral arterial occlusive disease: Status: Chronic (3) HLD (hyperlipidemia): Status: Acute (4) Hypertriglyceridemia: Status: Acute (5) Hypertensive heart disease: Status: Chronic (6) Essential hypertension: Status: Chronic (7) Tobacco dependence syndrome: Status: Chronic Assessment and Plan Assessment and Plan for All Diagnoses:: 1. PAD with claudication -BMS of aorta into bilateral common and external iliac arteries -DAPT with ASA and plavix for 30 days then just ASA 2. Hypertension -Continue metoprolol, losartan with HCTZ and amlodipine -Echo shows normal EF with no significant valve disease -Renal duplex and ultrasound pending 3. Tobacco abuse -Cessation recommended 4. Hyperlipidemia with hypertriglyceridemia -Continue atorvastatin therapy -LDL 101 Stable from a cardiac standpoint for discharge home. Home medications: Amlodipine 5 mg daily Aspirin 81 mg daily Atorvastatin 40 mg daily Plavix 75 mg daily Losartan hydrochlorothiazide 100/12.5 mg daily Metoprolol succinate 50 mg daily Follow-up in our office next week with consideration of ischemic workup as an outpatient.
[2024-02-27 08:37] LABS: Hemoglobin 13.1 g/dL (14.1-18.0)
[2024-02-27 12:00] VITALS: BP 124/61; PULSE 50; PULSE 62; RESP 18; TEMP 36.6; O2SAT 98
--- NOTE | 2024-02-27 12:00 | HMH.PHAINT1 ---
Pharmacy Intervention Comments: DISCHARGE MEDICATION COUNSELING PROVIDED. DISCUSSED STARTING PLAVIX (BLOOD THINNER, DAILY, BLEED/BRUISE RISK/LOCATION VS APPERANCE, IMPORTANCE OF TAKING DAILY TO HELP KEEP STENTS OPEN.) NO QUESTIONS VERBALIZED AT THIS TIME.
--- NOTE | 2024-02-27 14:51 | CA_ITS ---
FINAL REPORT TECHNIQUE: Grayscale, color Doppler and duplex Doppler ultrasound of the kidneys, aorta and renal arteries was performed. Multiple velocities were measured. CLINICAL HISTORY: Hypertension, severe PAD COMPARISON: None FINDINGS: Aorta velocity: 108 cm/sec Right kidney: 10.8 cm. No evidence of hydronephrosis or mass. Right intrarenal RI: 0.72-0.76 Right renal artery velocity: 205 cm/sec. Right RAR (Renal artery-Aortic Ratio): 1.90 Left Kidney: 10.6 cm. No evidence of hydronephrosis or mass. Left intrarenal RI: 0.68-0.75 Left renal artery velocity: 191 cm/sec. Left RAR (Renal Artery-Aortic Ratio): 1.77 IMPRESSION: Less than 60% bilateral renal artery stenosis. CT angiogram or postcontrast MR angiogram would be more sensitive for evaluation of possible renal artery stenosis. Reviewed, Interpreted and Dictated by Kristopher Gates MD Transcribed by Olga Lidia Dunaway Authenticated and . [facility]
--- NOTE | 2024-02-28 15:10 | CARE MANAGER ---
Called and spoke with patient's sister regarding recent discharge. She states that he is doing well, aware of scheduled f/u appts and has started new medication prescribed at discharge. No concerns voiced at time of call.
== END 2024-02-27 12:18 | disposition home or self-care (01) ==
LOC: 2ND 12:26
PROVIDERS: Internal Medicine; Physician Assistant; Admitting Provider Internal Medicine Adolescent Medicine; Visit Provider Internal Medicine Adolescent Medicine
DX: N18.30 Chronic kidney disease, stage 3 unspecified; I12.9 Hypertensive chronic kidney disease with stage 1 through stage 4 chronic kidney disease, or unspecified chronic kidney disease; I74.09 Other arterial embolism and thrombosis of abdominal aorta; I77.1 Stricture of artery; I70.223 Atherosclerosis of native arteries of extremities with rest pain, bilateral legs; F17.210 Nicotine dependence, cigarettes, uncomplicated; Z79.899 Other long term (current) drug therapy
CPT/HCPCS: 36415; 37221; 37223; 37236; 76770; 80048; 80061; 80076; 85007; 85025; 85347; 93306; 93976; 99152; 99153; C1725; C1769; C1876; C1894; G0378; J1644; J2720; Q9966

== ENCOUNTER 2024-12-04 14:40 | Outpatient (CLI) | payer MEDICAID, SELFPAY ==
[2024-12-04 15:28] LABS: Basophils # 0.1 K/mm3 (0-0.2); Basophils % 0.4 % (0.1-2.0); Eosinophils # 0.3 K/mm3 (0.0-0.4); Hematocrit 42.9 % (42.0-52.0); Hemoglobin 15.1 g/dL (14.1-18.0); Lymphocytes # 3.4 K/mm3 (0.7-4.5); Lymphocytes % 25.1 % (10-50); Mean Corpuscular HGB Conc 35.2 g/dL (31.8-35.4); Mean Corpuscular Volume 90.9 fl (80-94); Mean Platelet Volume 9.8 fl (7.4-10.4); Monocytes # 1.2 K/mm3 (0.1-1.0); Monocytes % 8.6 % (1.7-9.3); Neutrophils # 8.5 K/mm3 (1.8-7.8); Neutrophils % 63.7 % (37.0-80.0); Platelet Count 356 K/mm3 (142-424); Red Blood Count 4.72 M/mm3 (4.60-6.20); Red Cell Distribution Width 12.5 % (11.5-17.5); White Blood Count 13.4 K/mm3 (4.8-10.8)
[2024-12-04 15:54] LABS: Alanine Aminotransferase 25 U/L (12-78); Alkaline Phosphatase 79 U/L (38-126); Anion Gap 10.1 mEq/L (5-15); Aspartate Amino Transferase 21 U/L (17-59); Bilirubin,Direct 0.2 mg/dl (0.0-0.4); Bilirubin,Indirect 0.2 mg/dL (0.0-0.9); Bilirubin,Total 0.4 mg/dl (0.2-1.3); Bilirubin,Unconjugated 0.2 mg/dL (0.0-1.1); Blood Urea Nitrogen 17 mg/dl (9-20); Calcium 9.3 mg/dl (8.4-10.2); Carbon Dioxide 27 mmol/L (22.0-30.0); Chloride 106 mmol/L (98-107); Chol/HDL Ratio 5.1 (1-3.5); Cholesterol 132 mg/dl (140-200); Estimated Glomerular Filt Rate 68 ml/min (>60); GFR (African American) 82 ML/MIN (>60); Glucose 103 mg/dl (74-100); HDL Cholesterol 26 mg/dl (40-60); Potassium 4.1 mmoL/L (3.5-5.1); Sodium 139 mmol/L (136-145); Total Protein,Serum 6.1 g/dl (6.3-8.2); Triglycerides 346 mg/dl (30-150); VLDL Cholesterol 69 mg/dL (0-40)
[2024-12-04 16:05] LABS: Direct LDL Cholesterol 56.92 mg/dL (100-129)
[2024-12-04 16:09] LABS: Free T4 (Free Thyroxine) 1.02 ng/dl (0.78-2.19)
[2024-12-04 16:23] LABS: Thyroid Stimulating Hormone 1.73 uIU/mL (0.465-4.68)
== END 2024-12-04 23:59 | disposition home or self-care (01) ==
LOC: LAB 14:41
PROVIDERS: Visit Provider Nurse Practitioner Family
DX: E78.2 Mixed hyperlipidemia (principal); E78.1 Pure hyperglyceridemia; I10 Essential (primary) hypertension
CPT/HCPCS: 36415; 80048; 80061; 80076; 84439; 84443; 85025